=== PATIENT | female | born 1985 | race Caucasian/White ===

== ENCOUNTER 2021-09-28 20:41 | Emergency (ER) | payer SELFPAY ==
[~2021-09-28] VITALS: Ht 162.6 cm; Wt 71.7 kg
[2021-09-28] MEDS ORDERED: ONDANSETRON HCL INJ 2MG/ML 2ML 2 MG/ML VIAL IV STA (22:48)
[2021-09-28] MEDS ORDERED: SODIUM CHLORIDE 0.9% 1000ML 1,000 ML IV SCH (23:00)
[2021-09-28] MEDS ORDERED: SODIUM CHLORIDE 0.9% 1000ML 1,000 ML ONE (23:20)
[2021-09-28] MEDS ORDERED: ONDANSETRON HCL INJ 2MG/ML 2ML 2 MG/ML VIAL ONE (23:20)
[2021-09-28] MEDS ORDERED: CEFTRIAXONE 1 GM VIAL ONE (23:20)
[2021-09-29] MEDS ORDERED: CEFDINIR300 MG PO (00:06)
[2021-09-29] MEDS ORDERED: ONDANSETRON ODT4 MG PO (00:07)
== END 2021-09-29 00:38 | disposition home or self-care (01) ==
LOC: FSED 22:25
DX: O23.41 Unspecified infection of urinary tract in pregnancy, first trimester (principal); O21.9 Vomiting of pregnancy, unspecified
CPT/HCPCS: 80048; 80076; 81003; 81025; 85025; 87086; 87186; 99284; J0696; J2405; J7030